=== PATIENT | male | born 1975 ===

== ENCOUNTER → 2021-03-02 | Outpatient (CLI) | payer OTHER ==
--- NOTE | 2021-03-02 13:03 | PDOC1 ---
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 Patient reports no specific injury but generalized working out activities weightlifting and activity causing pain to increase the base the neck and shoulders again worse on the right than the left rating the upper extremities posterior deltoid anterior biceps posterior triceps into the forearms with anteriorly posteriorly and into the thumb on the left side into the distal third fourth and fifth fingers on the right side with activity patient reports this is worse with lifting items reaching over his head either extremity repetitive motions weightlifting activities patient is had physical therapy for the last 3 months which was helpful but only temporarily also some chiropractic treatment and some traction of the cervical spine which helps temporarily as well for about a day patient reports awakening from sleep multiple times during night maybe 10 times a night can affect his bowel bladder control but no loss of continence just increased frequency is noticed and does not affect his ability to walk significant patient taking Motrin as well as gabapentin neither 1 of which really decreased the pain much patient reports his disability rating 0-10 10 me the worst is a 4 family responsibilities and social activity self-care and life support activities 8 with recreation 6 with occupational activities and 8 with sexual behavior. Patient had MRI scan of the cervical spine as well as the shoulders showing levels at C5-6 C6-7 with diffuse disc bulges as well as some posterior displacement and an impingement upon the cervical cord at those levels without specific herniation. PAST MEDICAL HISTORY: PMH: No major medical problems or conditions that he is aware of PREVIOUS SURGERIES: Past Surgical Hx: Tonsillectomy, biceps surgery on the right 2018 CURRENT MEDICATIONS: Current Meds: See chart FAMILY HISTORY: Family Hx: No major medical problems or conditions that he is aware of. 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 REVIEW OF SYSTEMS: ROS: Positive for those items mentioned in history of present illness, all systems are reviewed, otherwise negative ,and are complete full and well-documented on patient's chart. PHYSICAL EXAM: VS: Blood pressure is 132/90 pulse 82 respirations 18 temperature is 98.4 F height is 5 foot 10 inches weight is 198 pounds PE: PHYSICAL EXAMINATION: GENERAL: The patient is awake, alert, oriented, appropriate, very pleasant in demeanor HEENT: Shows normocephalic, atraumatic. Extraocular movements are intact and symmetrical. Oral cavity: Mucous membranes moist and pink. Dentition is intact. NECK: Shows anterior throat supple without palpable lymphadenopathy noted. Swallow reflex symmetrical. CHEST: Shows normal on inspection. Breath sounds are clear bilaterally, no rales rhonchi or wheezes auscultated. HEART: Shows S1, S2 clear. No murmurs auscultated. ABDOMEN: Soft, nontender, nondistended. No palpable organomegaly is noted. No rebound or guarding demonstrated. BACK: Shows spine grossly in the midline. Normal-appearing cervical lordotic curvature. Cervical paraspinous muscles show symmetrical with inspection, on palpation some mild tenderness diffusely in the inferior aspect the cervical paraspinous musculature bilaterally without trigger points without radiation without atrophy hypertrophy. Patient with good rotation of motion with some moderate tenderness with extension as well as far right lateral rotation but not to the left both are performed past 45 degrees closer to 90 degrees. Full forward flexion is performed without difficulty. There is slightly increased thoracic kyphosis, some minor flattening of the lumbar lordotic curvature. EXTREMITIES: Upper extremities show deep tendon reflexes 2+ in the biceps and triceps tendons. 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 Peripheral pulses are 2+ radial. No peripheral edema is noted bilaterally. Upper extremities are warm and dry to touch, equal in color and appearance. SKIN: Shows warm and dry, good turgor. No edema. No sores, rashes or bruising throughout. IMPRESSION: Impression: 46-year-old male with approximate 3-month history pain base of neck and s houlders radiating and radicular fashion right greater than left upper extremities. MRI scan cervical spine as noted Plan: Options were discussed with the patient could exert medical managements continued physical therapies interventional techniques. Patient elects interventional techniques. We discussed a cervical epidural steroid injections description as well as anatomical models to describe the procedure. As patient has clinical radiculopathy C6-7 dermatomal distribution right greater than left we will preauthorize patient for cervical epidural steroid injection at the C6-7 level using fluoroscopic guidance. In the meantime, patient continue with physical therapy exercises stretching strengthening and we will also prescribe Medrol Dosepak patient was given instructions well side effects aware of with the medication. MESHA GREY MD Mar 02, 2021 13:03
== END | disposition home or self-care (01) ==
LOC: PNCL 09:36
PROVIDERS: ATTEND Anesthesiology
DX: M79.602 Pain in left arm (principal); M79.601 Pain in right arm
CPT/HCPCS: 99205; G0463

== ENCOUNTER → 2021-03-09 | Outpatient (CLI) | payer OTHER ==
[~2021-03-09] MED LIST: IOHEXOL 180 MG/ML 10 ML VIAL. ONE; methylPREDNISolone ACETATE 40 MG/ML VIAL. ONE; methylPREDNISolone ACETATE 80 MG/ML VIAL. ONE
--- NOTE | 2021-03-09 08:52 | PDOC ---
Progress Note - Pain Clinic Date of Service: DOS: DATE: 03/09/21 TIME: 08:48 Diagnosis: Dx: Cervical radiculopathy with cervical degenerative disc disease History or Present Illness: HPI: 46-year-old male returns with complaints of pain in the base the neck and shoulders bilaterally slightly worse on the right than the left and present bilaterally radiating in the mid upper back as well into the upper extremities shoulders arms forearms into the hands again more on the right than the left. Patient reports no motor or sensory deficits but significant pain with activity repetitive motions weightlifting and working out as well as reaching over his h ead with his right and left arm patient reports awakening from sleep about once every 4 hours, patient has no overt motor loss but significant fatigability especially of the right upper extremity with activity. Patient reports pain is aching and sharp tight in the neck and shooting tingling burning in the upper extremities again worse on the right than the left radiating can be constant with activity. Physical Exam: VS: Blood pressure is 162/92 pulse 70 respirations 18 temperature 98.2 degrees f height is 5 feet 10 inches weight is 202 pounds PE: PHYSICAL EXAMINATION: GENERAL: The patient is awake, alert, oriented, appropriate, very pleasant in demeanor HEENT: Shows normocephalic, atraumatic. Extraocular movements are intact and symmetrical. Oral cavity: Mucous membranes moist and pink. Dentition is intact. NECK: Shows anterior throat supple without palpable lymphadenopathy noted. Swallow reflex symmetrical. CHEST: Shows normal on inspection. Breath sounds are clear bilaterally, no rales or rhonchi. HEART: Shows S1, S2 clear. No murmurs auscultated. ABDOMEN: Soft, nontender, nondistended. No palpable organomegaly is noted. BACK: Shows spine grossly in the midline. Normal-appearing cervical lordotic curvature. Cervical paraspinous muscles show symmetrical inspection, with palpation some mild tenderness diffusely in the inferior aspect cervical paraspinous muscles bilaterally diffusely without radiation without trigger points, patient shows full rotation motion cervical spine with lateral as well as extension flexion without significant difficulty. There is slightly incre ased thoracic kyphosis, some minor flattening of the lumbar lordotic curvature. EXTREMITIES: Upper extremities show deep tendon reflexes 2+ in the biceps and triceps tendons. 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 Peripheral pulses are 2+ radial. No peripheral edema is noted bilaterally. Upper extremities are warm and dry to touch, equal in color and appearance. SKIN: Shows warm and dry, good turgor. No edema. No sores, rashes or bruising throughout. Procedure: Procedure: Options were discussed with the patient. Patient chart reviews his current medication regimen updated current review of systems updated today as well. We will proceed with a cervical epidural to injection today with fluoroscopic guidance. Risks were discussed including but not limited to: Bleeding, infection, possibility of epidural hematoma and subsequent neurological compromise, dural puncture, headaches, spinal cord and/or nerve damage, side effects of steroid medication, and poor results regarding pain control. Patient understands and wished to proceed. Patient return to the clinic in approximately 2 weeks for follow-up, was counseled as return appointment, activity level, and side effect to be aware of. Medication Injected: Med Injected: Procedure cervical epidural steroid injection at the C6-7 level, using local anesthetic under sterile prep and drape using C-arm fluoroscopic guidance under local anesthesia medications injected ;120 mg Depo-Medrol +5 mL normal saline and 2 mL contrast; condition at discharge is stable patient tolerated procedure well. and had no complications Condition at Discharge: Condition at Discharge: Condition at discharge stable, paced tolerated procedure well and had no complications. MESHA GREY MD Mar 09, 2021 08:52
--- NOTE | 2021-03-09 08:52 | PDOC4 ---
Procedure Note: ICD 10 Code: ICD 10 Code: M54.12 M50.30 Procedure Note: Patient was consented for cervical epidural steroid injection with fluoroscopic guidance. Risks were discussed including but not limited to: Bleeding, infection, possibility of epidural hematoma and subsequent neurological compromise, dural puncture, headaches, spinal cord and/or nerve damage, side effects of steroid medication, and poor results regarding pain control. Patient understands and wished to proceed. Procedure cervical epidural steroid injection at the C6-7 level, using local anesthetic under sterile prep and drape using C-arm fluoroscopic guidance under local anesthesia medications injected ;120 mg Depo-Medrol +5 mL normal saline and 2 mL contrast; condition at discharge is stable patient tolerated procedure well. and had no complications MESHA GREY MD Mar 09, 2021 08:52
== END | disposition home or self-care (01) ==
LOC: PNCL 07:54
PROVIDERS: ATTEND Anesthesiology
DX: M50.10 Cervical disc disorder with radiculopathy, unspecified cervical region (principal)
CPT/HCPCS: 62321; J1030; J1040; Q9965

== ENCOUNTER → 2021-03-30 | Outpatient (CLI) | payer OTHER ==
--- NOTE | 2021-03-30 08:29 | PDOC ---
Progress Note - Pain Clinic Date of Service: DOS: DATE: 03/30/21 TIME: 08:25 Diagnosis: Dx: Cervical radiculopathy with cervical degenerative disc disease History or Present Illness: HPI: 46-year-old male returns for follow-up status post cervical epidural steroid injection x1. Patient reports about 80% improvement initially still pain in the left upper extremity greater than the right but has a new pain of right posterior shoulder which is been somewhat problematic over the past week or so but radiating in the right arm as well patient reports that this is not present prior to the injection also has gained about 4 pounds in weight since the last injection patient reports the pain the left arm is still significantly more than the right but again the right posterior shoulder is much more noticeable now with repetitive motions weightlifting and reaching over his head with his right arm patient reports awakening from sleep occasionally but not more than every 5- 6 hours patient reports pain is aching sharp tight shooting in the neck tingling cramping in the right shoulder blade and radiating constant in the left arm patient reports is a 6 on scale 10 is worst average and for its least and is a 4 today. Patient reports no bowel or bladder incontinence. Physical Exam: VS: Blood pressure is 147/93 pulse 70 respirations 18 temperature is 98.1 F weight is 206 pounds PE: PHYSICAL EXAMINATION: GENERAL: The patient is awake, alert, oriented, appropriate, very pleasant in demeanor HEENT: Shows normocephalic, atraumatic. Extraocular movements are intact and symmetrical. Oral cavity: Mucous membranes moist and pink. Dentition is intact. NECK: Shows anterior throat supple without palpable lymphadenopathy noted. Swallow reflex symmetrical. CHEST: Shows normal on inspection. Breath sounds are clear bilaterally, distant but no rales or. HEART: Shows S1, S2 clear. No murmurs auscultated. ABDOMEN: Soft, nontender, nondistended. No palpable organomegaly is noted. BACK: Shows spine grossly in the midline. Normal-appearing cervical lordotic curvature. Cervical spine shows grossly midline cervical paraspinous muscles show symmetrical with inspection, on palpation some moderate tenderness diffusely bilaterally diffusely without significant radiation. Patient is good rotation motion cervical spine with lateral as well as extension flexion without significant difficulty or pain reported. There is slightly increased thoracic kyphosis, some minor flattening of the lumbar lordotic curvature. EXTREMITIES: Upper extremities show deep tendon reflexes 2+ in the biceps and triceps tendons. 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 Peripheral pulses are 2+ radial. No peripheral edema is noted bilaterally. Upper extremities are warm and dry to touch, equal in color and appearance. SKIN: Shows warm and dry, good turgor. No edema. No sores, rashes or bruising throughout. Procedure: Procedure: Options discussed with the patient. Patient chart reviews his current medication regimen updated current review of systems updated today as well. We will proceed with a cervical epidural steroid injection today with fluoroscopic guidance. Risks were discussed including but not limited to: Bleeding, infection, possibility of epidural hematoma and subsequent neurological compromise, dural puncture, headaches, spinal cord and/or nerve damage, side effects of steroid medication, and poor results regarding pain control. Patient understands and wished to proceed. Patient will return to the clinic in approximately 2 weeks for follow-up, was counseled return appointment, activity level, and side effect to be aware of. Medication Injected: Med Injected: Procedure cervical epidural steroid injection at the C6-7 level, using local anesthetic under sterile prep and drape using C-arm fluoroscopic guidance under local anesthesia medications injected ;120 mg Depo-Medrol +5 mL normal saline and 2 mL contrast; condition at discharge is stable patient tolerated procedure well. and had no complications Condition at Discharge: Condition at Discharge: Condition at discharge is stable, patient tolerated the procedure well and had no complications. MESHA GREY MD Mar 30, 2021 08:29
--- NOTE | 2021-03-30 08:30 | PDOC4 ---
Procedure Note: ICD 10 Code: ICD 10 Code: M54.12 M50.30 Procedure Note: Patient was consented for cervical epidural steroid injection with fluoroscopic guidance. Risks were discussed including but not limited to: Bleeding, infection, possibility of epidural hematoma and subsequent neurological compromise, dural puncture, headaches, spinal cord and/or nerve damage, side effects of steroid medication, and poor results regarding pain control. Patient understands and wished to proceed. Procedure cervical epidural steroid injection at the C6-7 level, using local anesthetic under sterile prep and drape using C-arm fluoroscopic guidance under local anesthesia medications injected ;120 mg Depo-Medrol +5 mL normal saline and 2 mL contrast; condition at discharge is stable patient tolerated procedure well. and had no complications MESHA GREY MD Mar 30, 2021 08:30
== END | disposition home or self-care (01) ==
LOC: PNCL 07:59
PROVIDERS: ATTEND Anesthesiology
DX: M50.10 Cervical disc disorder with radiculopathy, unspecified cervical region (principal); Z79.899 Other long term (current) drug therapy
CPT/HCPCS: 62321; J1030; J1040; Q9965

== ENCOUNTER → 2021-05-11 | Outpatient (CLI) | payer OTHER ==
[~2021-05-11] MED LIST changes: +GABA600T7 PO
--- NOTE | 2021-05-11 15:20 | PDOC ---
Progress Note - Pain Clinic Date of Service: DOS: DATE: 05/11/21 TIME: 15:17 Diagnosis: Dx: Cervical radiculopathy with cervical degenerative disc History or Present Illness: HPI: 46-year-old male returns for follow-up status post cervical epidural steroid injection with near 100% improvement until about 1 week ago the pain began to return in the base the neck and shoulders now with some pain significantly radiating to the head which he has not had previously with new pain and headaches complaint today patient reports his arm shoulders are returning to pain but still significantly improved patient reports is aching pain that sharp and shooting tingling radiating can be constant and severe and unbearable in the upper extremities with repetitive motions and activity awakening from sleep about every 4-5 hours initially was doing much better with distance walking doing household activities work activities travel with greater ease and comfort sleeping better patient reports now the headache is coming more noticeable and he finds that he is thinking about nothing but his pain over the past few days at that is that severe and that distracting. Patient reports is an 8 on scale 10 is worst 7 on average 7 at its least and is a 7 today patient reports no loss of motor function but again new pain of headache as well as the upper extremities right and left radiating pain previously. Physical Exam: VS: Blood pressure 150/84 pulse 91 respirations 18 temperature 98.9 F height 5 feet 10 inches weight is 207 pounds PE: PHYSICAL EXAMINATION: GENERAL: The patient is awake, alert, oriented, appropriate, very pleasant in demeanor HEENT: Shows normocephalic, atraumatic. Extraocular movements are intact and symmetrical. Oral cavity: Mucous membranes moist and pink. Dentition is intact. NECK: Shows anterior throat supple without palpable lymphadenopathy noted. Swal low reflex symmetrical. CHEST: Shows normal on inspection. Breath sounds are clear bilaterally. HEART: Shows S1, S2 clear. No murmurs auscultated. ABDOMEN: Soft, nontender, nondistended. No palpable organomegaly is noted. BACK: Shows spine grossly in the midline. Normal-appearing cervical lordotic curvature. Cervical paraspinous muscles show symmetrical with inspection, palpation some moderate tenderness diffusely in the middle and lower decrease the paraspinous muscles without specific trigger points radiation or asymmetry. Patient shows full rotation motion cervical spine both laterally as well as extension flexion without significant difficulty. There is slightly increased thoracic kyphosis, some minor flattening of the lumbar lordotic curvature. EXTREMITIES: Upper extremities show deep tendon reflexes 2 in the biceps and tricep tendons. 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 Peripheral pulses are 2+ radial. No peripheral edema is noted bilaterally. Upper extremities are warm and dry to touch, equal in color and appearance. SKIN: Shows warm and dry, good turgor. No edema. No sores, rashes or bruising throughout. Procedure: Procedure: Options were discussed with the patient. Patient chart was reviewed as his current medication regimen updated current review of systems updated today as well. We will proceed with a cervical epidural steroid injection today with fluoroscopic guidance. Risks were discussed including but not limited to: Bleeding, infection, possibility of epidural hematoma and subsequent neurological compromise, dural puncture, headaches, spinal cord and/or nerve damage, side effects of steroid medication, and poor results regarding pain con trol. Patient understands and wished to proceed. Patient will return to clinic in approximate 2 weeks for follow-up, was counseled as return appointment, activity level, and side effect to be aware of. Medication Injected: Med Injected: Procedure cervical epidural steroid injection at the C6-7 level, using local anesthetic under sterile prep and drape using C-arm fluoroscopic guidance under local anesthesia medications injected ;120 mg Depo-Medrol +5 mL normal saline and 2 mL contrast; condition at discharge is stable patient tolerated procedure well. and had no complications Condition at Discharge: Condition at Discharge: Condition at discharge stable, paced tolerated the procedure well and had no complications. MESHA GREY MD May 11, 2021 15:20
--- NOTE | 2021-05-11 15:21 | PDOC4 ---
Procedure Note: ICD 10 Code: ICD 10 Code: M54.12 MFive 0.30 Procedure Note: Patient was consented for cervical epidural steroid injection with fluoroscopic guidance. Risks were discussed including but not limited to: Bleeding, infection, possibility of epidural hematoma and subsequent neurological compromise, dural puncture, headaches, spinal cord and/or nerve damage, side effects of steroid medication, and poor results regarding pain control. Patient understands and wished to proceed. Procedure cervical epidural steroid injection at the C6-7 level, using local anesthetic under sterile prep and drape using C-arm fluoroscopic guidance under local anesthesia medications injected ;120 mg Depo-Medrol +5 mL normal saline and 2 mL contrast; condition at discharge is stable patient tolerated procedure well. and had no complications MESHA GREY MD May 11, 2021 15:21
== END | disposition home or self-care (01) ==
LOC: PNCL 14:08
PROVIDERS: ATTEND Anesthesiology
DX: M50.10 Cervical disc disorder with radiculopathy, unspecified cervical region (principal); M54.12 Radiculopathy, cervical region; Z79.899 Other long term (current) drug therapy
CPT/HCPCS: 62321; J1030; J1040; Q9965

== ENCOUNTER → 2021-06-22 | Outpatient (CLI) | payer OTHER ==
[~2021-06-22] MED LIST changes: -IOHEXOL 180 MG/ML 10 ML VIAL. ONE; -methylPREDNISolone ACETATE 40 MG/ML VIAL. ONE; -methylPREDNISolone ACETATE 80 MG/ML VIAL. ONE
--- NOTE | 2021-06-22 10:05 | PDOC ---
Progress Note - Pain Clinic Date of Service: DOS: DATE: 06/22/21 TIME: 10:00 Diagnosis: Dx: Cervical radiculopathy with cervical degenerative disc disease Myofascial pain History or Present Illness: HPI: 46-year-old male returns status post cervical epidural steroid injection last seen May 11, 2021, patient did very well with near 100% improvement in the pain in the base of neck and shoulders rating to the upper extremities patient reports pain is returning but is different now as he has a much more significant pain in the neck and upper back and shoulders some radiation to the upper extremities but not nearly as significant as it was previously. Patient reports a tight sensation spastic in the base the neck and shoulders make it difficult to sleep also into the scapular regions bilaterally with some radiation of the upper extremities as well with a tingling sensation in the hands and first and second fingers on both hands patient reports the pain is 8 on scale 10 is worse over the past week 6 on average 6 its least is a 6 today prescribed is aching tight and shooting tingling burning stabbing can be radiating constant as well near unbearable but still patient maintaining function without loss of motor abilities. Patient reports exacerbated with repetitive motions weightbearing weight lifting reaching forward with weight in the upper extremities as well as driving and reaching his hands bilaterally. Patient reports significant spasticity and tight sensation in the base of the neck causing posterior headaches as well. Physical Exam: VS: Blood pressure is 146/94 pulse 89 respirations 18 temperature 97.6 F height is 5 feet 10 inches weight is 203 pounds. PE: PHYSICAL EXAMINATION: GENERAL: The patient is awake, alert, oriented, appropriate, very pleasant in demeanor HEENT: Shows normocephalic, atraumatic. Extraocular movements are intact and symmetrical. Oral cavity: Mucous membranes moist and pink. Dentition is intact. NECK: Shows anterior throat supple without palpable lymphadenopathy noted. Swallow reflex symmetrical. CHEST: Shows normal on inspection. Breath sounds are clear bilaterally, no rales or rhonchi. HEART: Shows S1, S2 clear. No murmurs auscultated. ABDOMEN: Soft, nontender, nondistended. No palpable organomegaly is noted. BACK: Shows spine grossly in the midline. Normal-appearing cervical lordotic curvature. Cervical paraspinous muscles show symmetrical inspection, on palpation some very firm ropelike musculature in the upper middle lower distribution the paraspinous muscles bilaterally very firm consistent with trigger point areas of musculature but without specific radiation this is true into the superior medial trapezius as well as the rhomboid distributional thoracic paraspinous musculature worse on the left than the right but present bilaterally also into the infrascapular region and suprascapular regions with very firm ropelike musculature bilaterally as well, without radiation on palpation bilaterally. There is slightly increased thoracic kyphosis, some minor flattening of the lumbar lordotic curvature. EXTREMITIES: Upper extremities show deep tendon reflexes 2+ in the biceps and tricep tendons. 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 Peripheral pulses are 2+ radial. No peripheral edema is noted bilaterally. Upper extremities are warm and dry to touch, equal in color and appearance. SKIN: Shows warm and dry, good turgor. No edema. No sores, rashes or bruising throughout. Procedure: Procedure: Options discussed with the patient. Patient's old chart was reviewed as her current medication regimen updated current review of systems updated today as well. We will preauthorize patient for a trigger point injections of the bilateral cervical paraspinous posterior bilateral trapezius musculature and bilateral suprascapular muscular bilateral infrascapular musculature. We wait for preauthorization with patient's insurance provider, in the meantime, patient was given Medrol Dosepak prescription, with instructions and side effects to be aware of. Patient will follow-up as scheduled for trigger point injections of the identified musculature. Medication Injected: Med Injected: None Condition at Discharge: Condition at Discharge: Condition at discharge is stable. MESHA GREY MD Jun 22, 2021 10:05
== END | disposition home or self-care (01) ==
LOC: PNCL 09:28
PROVIDERS: ATTEND Anesthesiology
DX: M50.10 Cervical disc disorder with radiculopathy, unspecified cervical region (principal); M79.18 Myalgia, other site; Z79.899 Other long term (current) drug therapy
CPT/HCPCS: 99212; G0463

== ENCOUNTER → 2021-07-01 | Outpatient (CLI) | payer OTHER ==
[~2021-07-01] MED LIST changes: +BUPIVACAINE MPF 0.25% 10 ML VIAL. ONE; +DEXAMETHASONE PRES.FREE 10 MG/ML VIAL. ONE; +RIZA10TA PO
--- NOTE | 2021-07-01 15:34 | PDOC ---
Progress Note - Pain Clinic Date of Service: DOS: DATE: 07/01/21 TIME: 15:27 Diagnosis: Dx: Myofascial pain Cervical radiculopathy with cervical degenerative disc disease History or Present Illness: HPI: 46-year-old male returns for follow-up status post cervical epidural steroid injection x3. Patient reports he did very well about 80% improvement initially pain is returning in the base of the neck and shoulders but is more in a neck and upper back as well as posterior scapular region without as much radiation of the upper extremities as he had previously patient reports is a tight sensation that is cramping and stiff worse with activity worse with sitting and reading with his head in a forward flexed position as well as with extension right and left lateral rotation patient reports is aching and tight can be tingling and stabbing at times as well in the upper back and shoulders posteriorly is radi ating across the upper back and shoulders as well. Patient reports is an 8 on scale 10 is worse over the past week 6 on average 5 to [place] is a 6 today patient describes it as severe at times with activity patient reports generally is better with sitting and resting with his head in a relaxed position supported as well as with laying down but does awaken him from sleep occasionally not every night. Patient reports no loss of motor function. Patient reports that after his cervical epidural steroid injections the radiating pain into the upper extremities is significantly improved however this is different in the upper back and shoulders with a tight spastic sensation. Physical Exam: VS: Blood pressure is 120/77 pulse 103 respirations 18 temperature 90.2 F height 5 feet 10 inches weight is 195 pounds. PE: PHYSICAL EXAMINATION: GENERAL: The patient is awake, alert, oriented, appropriate, very pleasant in demeanor HEENT: Shows normocephalic, atraumatic. Extraocular movements are intact and symmetrical. Oral cavity: Mucous membranes moist and pink. Dentition is intact. NECK: Shows anterior throat supple without palpable lymphadenopathy noted. Swallow reflex symmetrical. CHEST: Shows normal on inspection. Breath sounds are clear bilaterally, no rales rhonchi wheezes auscultated. HEART: Shows S1, S2 clear. No murmurs auscultated. ABDOMEN: Soft, nontender, nondistended. No palpable organomegaly is noted. BACK: Shows spine grossly in the midline. Normal-appearing cervical lordotic curvature. Cervical paraspinous muscles show symmetrical inspection, on palpation some moderate tenderness diffusely bilaterally with with significant tenderness in the middle and lower disputes the cervical paraspinous muscular very firm ropelike musculature consistent with trigger point areas this is also true into the bilateral trapezius as well as into the superior aspect of the thoracic paraspinous musculature and rhomboid distribution with very firm ropelike musculature consistent with trigger point areas, with very firm ropelike musculature in the suprascapular and infrascapular musculature bilaterally as well but without radiation with palpation. There is slightly increased thoracic kyphosis, some minor flattening of the lumbar lordotic curvature. EXTREMITIES: Upper extremities show deep tendon reflexes 2+ in the biceps and triceps tendons. 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 Peripheral pulses are 2+ radial. No peripheral edema is noted bilaterally. Upper extremities are warm and dry to touch, equal in color and appearance. Shoulder shrug is strong and intact without loss of strength on resistance bilaterally. SKIN: Shows warm and dry, good turgor. No edema. No sores, rashes or bruising throughout. Procedure: Procedure: Options discussed with the patient. Patient's old chart was reviewed his current medication regimen updated her review of systems updated today as well. We will proceed with trigger point injections of the bilateral cervical paraspinous posture, bilateral trapezius musculature, bilateral suprascapular and infrascapular muscular, bilateral thoracic paraspinous musculature. Risk were discussed including but not limited to bleeding infection possibility of intravascular injection sequelae spread local anesthetic numbness pneumothorax side effects of steroid medication and poor results regarding pain control. Patient understands and wishes to proceed. Patient return to the clinic in approximately 4 weeks for follow-up, was counseled as to return appointment, activity level, and side effect to be aware of. Medication Injected: Med Injected: Sitting position under sterile prep and drape patients bilateral cervical paraspinous muscular as well as bilateral trapezius musculature, bilateral thoracic paraspinous posture, bilateral suprascapular and infrascapular muscular was identified with trigger points easily palpable and each trigger point injected using a 25-gauge needle after negative aspiration for total of 12 cc 0.25% ropivacaine and total of 10 mg dexamethasone. Patient tolerated the procedure well and had no complications. Condition at Discharge: Condition at Discharge: Condition at discharge stable, paced tolerated the procedure well had no complications. MESHA GREY MD Jul 01, 2021 15:34
--- NOTE | 2021-07-01 15:35 | PDOC4 ---
Procedure Note: ICD 10 Code: ICD 10 Code: M60.89 Procedure Note: Patient was consented for trigger point injections. Risk were discussed including but not limited to bleeding infection possibility of intravascular injection sequelae spread local anesthetic numbness pneumothorax side effects of steroid medication and poor results regarding pain control. Patient understands wished to proceed. Sitting position under sterile prep and drape patients bilateral cervical paraspinous muscular as well as bilateral trapezius musculature, bilateral thoracic paraspinous posture, bilateral suprascapular and infrascapular muscular was identified with trigger points easily palpable and each trigger point in jected using a 25-gauge needle after negative aspiration for total of 12 cc 0.25% ropivacaine and total of 10 mg dexamethasone. Patient tolerated the procedure well and had no complications. MESHA GREY MD Jul 01, 2021 15:35
== END | disposition home or self-care (01) ==
LOC: PNCL 15:03
PROVIDERS: ATTEND Anesthesiology
DX: M79.18 Myalgia, other site (principal); M50.10 Cervical disc disorder with radiculopathy, unspecified cervical region; Z79.899 Other long term (current) drug therapy
CPT/HCPCS: 20553; J1100; J3490